=== PATIENT | male | born 1975 | race Caucasian/White ===

== ENCOUNTER 2020-10-26 10:28 | Emergency (ER) | payer MEDICAID, OTHER ==
[~2020-10-26] VITALS: Ht 180.3 cm; Wt 77.7 kg
[2020-10-26 10:28] VITALS: BP 131/77
== END 2020-10-26 11:32 | disposition home or self-care (01) ==
LOC: M ED 10:28
DX: Z04.89 Encounter for examination and observation for other specified reasons (principal); Z88.0 Allergy status to penicillin; F17.210 Nicotine dependence, cigarettes, uncomplicated